=== PATIENT | female | born 1955 | race African-American/Black ===

== ENCOUNTER 2020-12-05 12:08 | Emergency (ER) | payer MEDICARE ==
[~2020-12-05] VITALS: Ht 170.2 cm; Wt 90.7 kg
--- NOTE | 2020-12-05 12:18 | NUR ---
TO ER BED 3, C/O WEAKNESS SINCE MORNING AFTER HIKING, ATTACHED TO MONITOR
--- NOTE | 2020-12-05 12:28 | NUR ---
REFUSED NS, AWARE
[2020-12-05] MEDS ORDERED: IV NS 0.9% 1,000 ML BAG IV ONE (12:30)
[2020-12-05 12:48] LABS: BASOPHILS # (AUTO) 0.2 K/uL (0.0-0.2); BASOPHILS % (AUTO) 2.9 % (0.0-2.0); EOSINOPHILS % (AUTO) 0.6 % (0.0-6.0); HEMATOCRIT 42 % (33-45); HEMOGLOBIN 13.7 g/dL (11.5-14.8); LYMPHOCYTES % (AUTO) 11.8 % (20.0-44.0); MEAN CORPUSCULAR HGB CONC 33 g/dl (31.0-36.0); MEAN CORPUSCULAR VOLUME 83 fL (82-100); MONOCYTES # (AUTO) 0.4 K/uL (0.1-1.30); MONOCYTES % (AUTO) 4.9 % (2.0-12.0); NEUTROPHILS # (AUTO) 6.7 K/uL (1.8-8.9); NEUTROPHILS % (AUTO) 79.8 % (43.0-81.0); PLATELET COUNT (AUTO) 265 K/uL (150-450); RED BLOOD CELL COUNT(AUTO) 5.03 MIL/uL (4.0-5.2); WHITE BLOOD COUNT (AUTO) 8.4 K/uL (4.3-11.0)
[2020-12-05 13:17] VITALS: BP 141/97
[2020-12-05 13:31] LABS: CALCIUM, SERUM 9.7 mg/dL (8.5-10.1); POTASSIUM 3.5 mmol/L (3.5-5.1)
== END 2020-12-05 13:48 | disposition home or self-care (01) ==
LOC: ER 12:12
DX: I10 Essential (primary) hypertension (principal); V49.49XA Driver injured in collision with other motor vehicles in traffic accident, initial encounter; Y93.89 Activity, other specified; Y92.413 State road as the place of occurrence of the external cause; Y99.8 Other external cause status
CPT/HCPCS: 36415; 70450-TC; 80048-TC; 82962-TC; 85025-TC; J7030

== ENCOUNTER 2024-07-22 15:16 | Inpatient (IN) | payer MEDICAID, MEDICARE ==
[2024-07-22] VITALS: BP 160/92; TEMP 99
[~2024-07-22] VITALS: Ht 180.3 cm; Wt 87.1 kg
[2024-07-22 16:28] LABS: BASOPHILS % (AUTO) 0.5 % (0.0-2.0); EOSINOPHILS % (AUTO) 0.6 % (0.0-6.0); HEMATOCRIT 44 % (33-45); HEMOGLOBIN 14.3 g/dL (11.5-14.8); LYMPHOCYTES # (AUTO) 2.4 K/uL (0.8-4.8); LYMPHOCYTES % (AUTO) 32.9 % (20.0-44.0); MEAN CORPUSCULAR HEMOGLOBIN 27 PG (26.0-33.0); MEAN CORPUSCULAR HGB CONC 33 g/dl (31.0-36.0); MEAN CORPUSCULAR VOLUME 83 fL (82-100); MONOCYTES # (AUTO) 0.5 K/uL (0.1-1.30); MONOCYTES % (AUTO) 6.5 % (2.0-12.0); NEUTROPHILS # (AUTO) 4.4 K/uL (1.8-8.9); NEUTROPHILS % (AUTO) 59.5 % (43.0-81.0); PLATELET COUNT (AUTO) 261 K/uL (150-450); RED BLOOD CELL COUNT(AUTO) 5.33 MIL/uL (4.0-5.2); RED CELL DISTRIBUTION WIDTH 14.9 % (11.5-15.0); WHITE BLOOD COUNT (AUTO) 7.4 K/uL (4.3-11.0)
[2024-07-22 16:36] LABS: CALCIUM, SERUM 9.2 mg/dL (8.5-10.1); POTASSIUM 5.6 mmol/L (3.5-5.1)
[2024-07-22 16:42] LABS: INR 1.05 (0.91-1.10); PARTIAL THROMBOPLASTIN TIME 29.6 SEC (24.3-34.3); PROTHROMBIN TIME 11.1 SECS (9.2-11.1)
[2024-07-22] MEDS ORDERED: LORAZEPAM INJ 2 MG/ML VIAL ONE (17:20)
[2024-07-22] MEDS: LORAZEPAM INJ 2 MG/ML VIAL IV ONE (17:23)
[2024-07-22] MEDS: IV NS 0.9% 1,000 ML IV SCH (22:25)
[2024-07-22] MEDS ORDERED: ONDANSETRON HCL/PF 4 MG/2 ML VIAL IVP PRN (22:30)
[2024-07-22] MEDS ORDERED: DEXTROSE 50%-WATER 50 ML DISP.SYRIN IV PRN (22:30)
[2024-07-22] MEDS ORDERED: LORAZEPAM INJ 2 MG/ML VIAL IV PRN (22:30)
[2024-07-22] MEDS: ASPIRIN 81 MG TAB.CHEW PO SCH (23:06)
[2024-07-22] MEDS: ATORVASTATIN 40 MG TABLET PO SCH (23:06)
[2024-07-22] MEDS ORDERED: LEVETIRACETAM (500MG) 500 MG/5 ML VIAL IV ONE (23:22)
[2024-07-22] MEDS: LEVETIRACETAM (500MG) 500 MG in IV NS 0.9% 100 ML IV SCH (23:32)
[2024-07-23] VITALS: BP 160/92; TEMP 99; O2SAT 94
[2024-07-23] LABS: CHOLESTEROL 136 mg/dL (<200); HDL CHOLESTEROL 44 mg/dL (40-60); LDL 70 mg/dL (0-99); TRIGLYCERIDES 134 mg/dL (30-150)
[2024-07-23] MEDS: hydrALAZINE HCL IV 20 MG VIAL IV PRN (00:11)
[2024-07-23] MEDS: MORPHINE SULFATE INJ 2 MG/ML DISP.SYRIN IV PRN (00:37)
[2024-07-23 02:42] LABS: APPEARANCE,URINE CLEAR (CLEAR); BILIRUBIN,URINE NEGATIVE (NEGATIVE); BLOOD, URINE NEGATIVE Ery/uL (NEGATIVE); COLOR,URINE YELLOW (YELLOW); KETONES,URINE NEGATIVE (NEGATIVE); LEUKOCYTE ESTERASE ,URINE NEGATIVE (NEGATIVE); NITRITE, URINE POSITIVE (NEGATIVE); PH,URINE 6.5 (5.0-8.0); PROTEIN,URINE TRACE mg/dl (NEGATIVE); UGLUCOSE NEGATIVE (NEGATIVE); UROBILINOGEN,URINE 0.2 EU/dL (0.2)
[2024-07-23 02:53] LABS: ADD URINE CULTURE YES; BACTERIA,URINE Many /HPF (None Seen); RBC,URINE 0-2 /HPF (0-2); SQUAMOUS EPITHELIAL CELL,UR 0-2 /HPF (None Seen)
[2024-07-23 04:00] VITALS: BP 131/78; TEMP 98.2; O2SAT 93
[2024-07-23] MEDS: ACETAMINOPHEN 325 MG TABLET PO PRN (04:17)
[2024-07-23 07:31] LABS: BASOPHILS % (AUTO) 0.3 % (0.0-2.0); EOSINOPHILS % (AUTO) 0.1 % (0.0-6.0); HEMATOCRIT 47 % (33-45); HEMOGLOBIN 15.2 g/dL (11.5-14.8); LYMPHOCYTES # (AUTO) 2.5 K/uL (0.8-4.8); LYMPHOCYTES % (AUTO) 28.8 % (20.0-44.0); MEAN CORPUSCULAR HEMOGLOBIN 27 PG (26.0-33.0); MEAN CORPUSCULAR HGB CONC 33 g/dl (31.0-36.0); MEAN CORPUSCULAR VOLUME 82 fL (82-100); MONOCYTES # (AUTO) 0.6 K/uL (0.1-1.30); MONOCYTES % (AUTO) 6.5 % (2.0-12.0); NEUTROPHILS # (AUTO) 5.6 K/uL (1.8-8.9); NEUTROPHILS % (AUTO) 64.3 % (43.0-81.0); PLATELET COUNT (AUTO) 280 K/uL (150-450); RED BLOOD CELL COUNT(AUTO) 5.69 MIL/uL (4.0-5.2); RED CELL DISTRIBUTION WIDTH 14.8 % (11.5-15.0); WHITE BLOOD COUNT (AUTO) 8.8 K/uL (4.3-11.0)
[2024-07-23 07:35] LABS: ALBUMIN 3.8 g/dL (3.4-5.0); BILIRUBIN,TOTAL 0.5 mg/dL (0.2-1.0); CALCIUM, SERUM 9.9 mg/dL (8.5-10.1); CREATININE 0.9 mg/dL (0.6-1.3); PHOSPHORUS 3.3 mg/dL (2.5-4.9); POTASSIUM 4.1 mmol/L (3.5-5.1); TOTAL PROTEIN, SERUM 7.9 g/dL (6.4-8.2)
[2024-07-23 08:00] VITALS: BP 129/88; TEMP 99; O2SAT 94
[2024-07-23] MEDS: BLOOD SUGAR DIAGNOSTIC 1 EACH STRIP VI SCH (08:07)
[2024-07-23] MEDS: HEPARIN SODIUM, PORCINE 5000 UNITS/1 ML VIAL SQ SCH (08:59)
[2024-07-23] MEDS: LEVETIRACETAM (500MG) 500 MG in IV NS 0.9% 100 ML IV SCH (09:00)
[2024-07-23] MEDS: HYDROCODONE/APAP 5/325MG TABLET PO PRN (10:33)
[2024-07-23] MEDS ORDERED: METO-357 PO (10:54)
[2024-07-23] MEDS ORDERED: SPIR100T5 PO (10:54)
[2024-07-23] MEDS ORDERED: AMLO-212 PO (10:54)
[2024-07-23] MEDS ORDERED: ATOM40CA7 PO (10:54)
[2024-07-23] MEDS ORDERED: DOXE10CA2 PO (10:54)
[2024-07-23] MEDS ORDERED: MELO-107 PO (10:54)
[2024-07-23] MEDS ORDERED: BACL20TA PO (10:54)
[2024-07-23] MEDS ORDERED: HYDR-3980 PO (10:54)
[2024-07-23] MEDS ORDERED: FLUC200T8 PO (10:54)
[2024-07-23] MEDS ORDERED: CYCL10TA9 PO (10:54)
[2024-07-23] MEDS ORDERED: ATOR80TA PO (10:54)
[2024-07-23 11:43] LABS: THYROID STIMULATING HORMONE 0.93 uIU/mL (0.358-3.74)
[2024-07-23 12:00] VITALS: BP 135/62; TEMP 98.7; O2SAT 95
[2024-07-23] MEDS: IV NS 0.9% 1,000 ML IV PRN (13:02)
[2024-07-23] MEDS ORDERED: GADOTERATE MEGLUMINE 10 MMOL/20 ML VIAL IV ONE (15:51)
[2024-07-23 16:00] VITALS: BP_SYST 105; BP_SYST 132; BP_DIAS 42; BP_DIAS 80; TEMP 97.8; TEMP 98.6; O2SAT 95; O2SAT 97
[2024-07-23] MEDS: POLYETHYLENE GLYCOL 3350 17 GM POWD.PACK PO PRN (19:32)
[2024-07-23 20:00] VITALS: BP 121/89; TEMP 98.2; O2SAT 97
[2024-07-23] MEDS: *INSULIN REGULAR(HUMULIN R)HUM 100 UNIT/ML VIAL SQ PRN (22:17)
[2024-07-24] VITALS: BP 124/89; TEMP 98.4; O2SAT 95
[2024-07-24 04:00] VITALS: BP 146/90; TEMP 98.2; O2SAT 95
[2024-07-24] MEDS: INSULIN REGULAR, HUMAN 100 UNIT/ML 3 ML VIAL SQ PRN (06:48)
[2024-07-24 07:09] LABS: BASOPHILS % (AUTO) 0.4 % (0.0-2.0); EOSINOPHILS % (AUTO) 0.5 % (0.0-6.0); HEMATOCRIT 45 % (33-45); HEMOGLOBIN 14.7 g/dL (11.5-14.8); LYMPHOCYTES # (AUTO) 4.1 K/uL (0.8-4.8); LYMPHOCYTES % (AUTO) 50.9 % (20.0-44.0); MEAN CORPUSCULAR HEMOGLOBIN 27 PG (26.0-33.0); MEAN CORPUSCULAR HGB CONC 33 g/dl (31.0-36.0); MEAN CORPUSCULAR VOLUME 83 fL (82-100); MONOCYTES # (AUTO) 0.7 K/uL (0.1-1.30); MONOCYTES % (AUTO) 9.1 % (2.0-12.0); NEUTROPHILS # (AUTO) 3.2 K/uL (1.8-8.9); NEUTROPHILS % (AUTO) 39.1 % (43.0-81.0); PLATELET COUNT (AUTO) 267 K/uL (150-450); RED BLOOD CELL COUNT(AUTO) 5.47 MIL/uL (4.0-5.2); WHITE BLOOD COUNT (AUTO) 8.1 K/uL (4.3-11.0)
[2024-07-24 07:25] LABS: CALCIUM, SERUM 9.4 mg/dL (8.5-10.1); CREATININE 1.1 mg/dL (0.6-1.3); MAGNESIUM 1.9 mg/dL (1.8-2.4); PHOSPHORUS 3.6 mg/dL (2.5-4.9); POTASSIUM 4.8 mmol/L (3.5-5.1)
[2024-07-24 08:00] VITALS: BP 139/88; TEMP 98.2; O2SAT 95
[2024-07-24 12:00] VITALS: BP 141/90; TEMP 97.9; O2SAT 96
[2024-07-24] MEDS ORDERED: ASPI-1169 PO ×2 (15:59)
[2024-07-24] MEDS ORDERED: LEVE500T9 PO (15:59)
[2024-07-24 16:00] VITALS: BP 126/90; TEMP 98.6; O2SAT 96
[2024-07-25 05:08] LABS: FOLIC ACID > 20.0 ng/mL (>3.0)
== END 2024-07-24 16:53 | disposition home or self-care (01) | DRG 100 ==
LOC: ER 15:19 → MEDSG1 20:36 → TELE1 07-23 01:20
PROVIDERS: ADMIT Internal Medicine; ATTEND Nurse Practitioner Acute Care
DX: R56.9 Unspecified convulsions (principal); G92.8 Other toxic encephalopathy; F11.23 Opioid dependence with withdrawal; E78.5 Hyperlipidemia, unspecified; I10 Essential (primary) hypertension; Z66 Do not resuscitate; G47.33 Obstructive sleep apnea (adult) (pediatric); E11.9 Type 2 diabetes mellitus without complications; E87.5 Hyperkalemia; R29.702 NIHSS score 2; Z87.891 Personal history of nicotine dependence
CPT/HCPCS: 36415; 70450-TC; 70553-TC; 80048-TC; 80053-TC; 80061-TC; 81001; 82607-TC; 82962-TC; 83605-TC; 83735-TC; 83921; 84100-TC; 84425; 84443-TC; 85025-TC; 85730-TC; 87086-TC; 87186-TC; 97110-TC; 97116-TC; 97530-TC; 97535-TC; A9575; G0378; J0360; J1644; J1815; J1953; J2060; J2270; J7030